=== PATIENT | male | born 1965 | race Caucasian/White ===

== ENCOUNTER 2021-02-08 10:06 | Emergency (ER) | payer OTHER, SELFPAY ==
[2021-02-08] VITALS (11 sets, daily range): BP systolic 114–193; BP diastolic 60–93; PULSE 66–92; RESP 25–36; TEMP 37–39.6; O2SAT 94–98; BMI 44.2
--- NOTE | ~2021-02-08 | XR_ITS ---
EXAMINATION: XR CHEST CLINICAL INFORMATION: Short of breath, fever. Rule out pneumonia. COMPARISON: None TECHNIQUE: Frontal view of the chest was obtained. FINDINGS: The lungs are hypoexpanded with bibasilar atelectasis. Rest of the lungs are clear.. Heart size and pulmonary vascularity is normal. No gross bony abnormality seen. XR/XR chest 1V IMPRESSION: Hypoexpanded lungs with bibasilar atelectasis.
--- NOTE | 2021-02-08 10:24 | PC.NURSE ---
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 Ice packs placed bilaterally in groin, axillae area and back of neck to cool patient down
--- NOTE | 2021-02-08 10:40 | ECG_ITS ---
Test Reason : HEAT STROKE Blood Pressure : / mmHG Vent. Rate : 094 BPM Atrial Rate : 094 BPM P-R Int : 134 ms QRS Dur : 136 ms QT Int : 352 ms P-R-T Axes : 006 -34 007 degrees QTc Int : 440 ms Normal sinus rhythm Left axis deviation Right bundle branch block Moderate voltage criteria for LVH, may be normal variant Abnormal ECG No previous ECGs available Referred By: Eleazar Allen Electronically Signed By:QUOC GAMBOA MD
--- NOTE | 2021-02-08 10:42 | ED.GENADULT ---
HPI - General Adult General Chief complaint: Nausea/Vomiting/Diarrhea Stated complaint: DEHYDRATION Time Seen by Provider: 02/08/21 10:31 Source: patient Mode of arrival: ambulatory Limitations: no limitations History of Present Illness HPI narrative: 55-year-old male who was brought to the emergency department for evaluation of lightheadedness, dizziness, vomiting diarrhea and weakness. 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 He was not feeling well and he went into the bathroom. In the bathroom he became lightheaded and dizzy and felt like he was going to pass out. He then had several episodes of vomiting and several episodes of diarrhea. He felt very fatigued and weak and was brought to the emergency department. In the emergency department, patient was found to have a temperature of a 103? F. The patient is complaining of feeling short of breath. He states he does have asthma. He also states that he has sleep apnea and fell asleep last night without his CPAP machine. Related Data Allergies Allergy/AdvReac Type Severity Reaction Status Date / Time No Known Allergies Allergy Verified 02/08/21 10:38 Review of Systems Review of Systems: Yes all other systems are reviewed and are negative [facility] Past Medical History [facility] Narrative: Past medical history: Diabetes mellitus, hyperlipidemia, sleep apnea, asthma. Past surgical history: Left thumb surgery. Social history: Patient denies tobacco, alcohol and drug use. Social History Social History Alcohol intake: never Patient Tobacco Use Status: Current someday Tobacco user Use of substances other than those prescribed or required for medical reasons: No Advance Directives: No Advance Directives Information Provided: Yes Physical Exam Vital Signs: Vital Signs: Last Vital Signs Temp 98.8 F 02/08/21 15:56 Pulse 83 02/08/21 15:56 Resp 28 H 02/08/21 15:56 BP 125/67 02/08/21 15:56 Pulse Ox 94 02/08/21 15:56 Body Mass Index 44.2 Const: General: cooperative Nutritional Appearance: obese Orientation/consciousness: oriented to person and oriented to place Limitations: no limitations HENMT: Head: Yes normal to inspection, Yes normocephalic and Yes atraumatic Ears: external ears normal General nose exam: Normal external nose present Face and sinus: Yes normal facial exam Mouth: Normal oral and palatal mucosa present Throat: Yes posterior oropharynx normal Eyes: Periorbital: periorbital findings normal Eyelids: Yes eyelids normal Conjunctivae: conjunctivae normal Sclerae: sclerae normal Corneas: corneas normal Pupils: Equal, round and reactive pupils present Direct Ophthalmoscopy: normal light reflex Neck: Neck: Yes full ROM, Yes no lymphadenopathy, Yes no meningeal signs, Yes trachea midline and Yes supple Chest: Chest palpation & inspection: normal inspection of the chest and normal palpation of entire chest wall Resp: Other: Patient appears to be dyspnea, lung exam revealed symmetric breath sounds with diffuse wheezing, no rales or rhonchi. Cardio: Rate: regular rate Rhythm: regular rhythm Heart sounds: S1 normal heart sound present, S2 normal heart sound present and no murmurs GI: Inspection: Yes normal to inspection Palpation (GI): Soft to palpation, nontender, no guarding, not rigid and No hepatosplenomegaly present : General: Yes no CVA tenderness Back/Spine/Pelvis: Back: no CVA tenderness Cervical Spine: normal cervical lordosis Thoracic/Lumbar Spine: thoracic and lumbar spine normal to inspection Skin: Other: The patient's skin is erythematous and very warm to the touch Neuro: General: oriented to person, oriented to place and no meningeal signs Cranial nerves: Yes CN's II-XII intact bilaterally and Yes Equal, round and reactive pupils present Cognition (Neuro): normal cognition Motor exam (neuro): 5/5 motor strength present throughout Extrem: General: Yes normal to inspection and Yes full ROM Psych: Appearance: well kempt Mental Status: mental status grossly normal Speech and movement: Normal speech and movement present Affect: normal affect Attitude: cooperative Thought process: Normal thought process present Thought content: Normal thought content present Course Course Course Narrative: 55-year-old male who presents emergency department for evaluation of dizziness, vomiting, diarrhea, fatigue and shortness of breath. 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 F. lung exam did reveal diffuse wheezing. My impression is the patient most likely has heat stroke. I did order laboratory evaluation to include CBC, CMP, troponin, EKG, blood cultures, lactic acid, chest x-ray. Patient was given Tylenol 975 mg orally, ice was packed in his axilla and groin bilaterally. he was ordered to get room temperature normal saline IV x1 L. 1631: Patient's laboratory evaluation did reveal an elevated white blood cell count of 15,000 with a left shift 90 neutrophils. Comprehensive metabolic panel did reveal an elevated glucose of 135 and elevated AST of 48 otherwise was unremarkable. Patient's initial lactic acid was 2.3, repeat was 2.5 and after completing his fluid boluses the lactic acid was 2.0. The patient's chest x-ray revealed no evidence of pneumonia. Urinalysis was negative. The patient is COVID-19 test was negative.The patient denies any tick exposures . The patient did have persistent fevers there were treated with Tylenol, ibuprofen and ice packs. It is possible the patient's symptoms may all be related to heat stroke however the patient may also have a viral infection as a cause of his symptoms. I did discuss this with him. The patient will be discharged home. The patient was given verbal and printed instructions prior to discharge. The patient was advised to follow-up with their PCP in 2 days and to return to the emergency department if their symptoms get worse or if they develop any new symptoms that are concerning to them Medical Decision Making Lab Data Result diagrams: 02/08/21 10:45 02/08/21 10:45 Labs: Lab Results 02/08/21 02/08/21 02/08/21 Range/Units 10:45 10:45 10:45 WBC 15.0 H (4.8-10.8) X10*3/uL RBC 4.58 L (4.60-5.80) X10*6/uL Hgb 13.9 L (14.0-18.0) g/dl Hct 42.3 (42-52) % MCV 92.4 (80-98) fL MCH 30.3 (27.0-33.0) pg MCHC 32.9 (31.0-36.0) g/dl RDW 13.5 (11.0-16.0) % Plt Count 166 (160-400) X10*3/uL MPV 12.4 (9.4-12.4) fL Immature Gran % (Auto) 0.5 H (0.0-0.4) % Neut % (Auto) 90.5 H (45-73) % Lymph % (Auto) 3.6 L (20-40) % Bacon % (Auto) 4.5 (2-11) % Eos % (Auto) 0.5 (0-4) % Baso % (Auto) 0.4 (0-2) % Lymph # (Auto) 0.5 L (1.2-4.9) X10*3/uL [place] # (Auto) 0.7 (0.1-1.2) X10*3/uL Eos # (Auto) 0.1 (0.0-0.4) X10*3/uL Baso # (Auto) 0.1 (0.0-0.2) X10*3/uL Abs Immat Gran (auto) 0.07 H (0.00-0.03) X10*3/uL Absolute Neuts (auto) 13.6 H (2.0-8.3) X10*3/uL Absolute Nucleated RBC 0.000 (0.0-0.012) X10*3/uL Nucleated RBC % (auto) 0.0 (0.0-0.2) /100WBC Smear Tech's Comments VERIFIED Sodium 138 (135-145) mmol/L Potassium 3.9 (3.3-5.1) mmol/L Chloride 101 (96-108) mmol/L Carbon Dioxide 27 (22-29) mmol/L Anion Gap 14 (12-20) BUN 14 (9-16) mg/dL Creatinine 0.96 (0.5-1.4) mg/dL Estim Creat Clear Calc 130.6 Estimated GFR > 60 Random Glucose 135 H (60-115) mg/dL Lactic Acid 2.3 H* (0.5-2.0) mmol/L Lactic Acid Fup @ 2Hr (0.5-2.0) mmol/L Lactic Acid Fup @ 4Hr (0.5-2.0) mmol/L Calcium 9.0 (8.4-10.2) mg/dL Total Bilirubin 1.0 (0.0-1.0) mg/dL AST 26 (5-37) U/L ALT 48 H (0-40) U/L Alkaline Phosphatase 87 (39-117) U/L Troponin I High Sens (<3.5-35.0) ng/L Total Protein 7.1 (6.5-8.0) g/dL Albumin 4.4 (3.5-5.0) g/dL Urine Color Urine Appearance Urine pH (5.0-8.0) Ur Specific [place] (1.005-1.025) Urine Protein (NEG-TRACE) MG/DL Urine Glucose (UA) (NEG) MG/DL Urine Ketones (NEG) MG/DL Urine Blood (NEG) Urine Nitrite (NEG) Ur Leukocyte Esterase (NEG) COVID-19 (EFREM) (Negative) COVID-19 Clin Com 02/08/21 02/08/21 02/08/21 Range/Units 10:45 13:34 13:34 WBC (4.8-10.8) X10*3/uL RBC (4.60-5.80) X10*6/uL Hgb (14.0-18.0) g/dl Hct (42-52) % MCV (80-98) fL MCH (27.0-33.0) pg MCHC (31.0-36.0) g/dl RDW (11.0-16.0) % Plt Count (160-400) X10*3/uL MPV (9.4-12.4) fL Immature Gran % (Auto) (0.0-0.4) % Neut % (Auto) (45-73) % Lymph % (Auto) (20-40) % Bacon % (Auto) (2-11) % Eos % (Auto) (0-4) % Baso % (Auto) (0-2) % Lymph # (Auto) (1.2-4.9) X10*3/uL [place] # (Auto) (0.1-1.2) X10*3/uL Eos # (Auto) (0.0-0.4) X10*3/uL Baso # (Auto) (0.0-0.2) X10*3/uL Abs Immat Gran (auto) (0.00-0.03) X10*3/uL Absolute Neuts (auto) (2.0-8.3) X10*3/uL Absolute Nucleated RBC (0.0-0.012) X10*3/uL Nucleated RBC % (auto) (0.0-0.2) /100WBC Smear Tech's Comments Sodium (135-145) mmol/L Potassium (3.3-5.1) mmol/L Chloride (96-108) mmol/L Carbon Dioxide (22-29) mmol/L Anion Gap (12-20) BUN (9-16) mg/dL Creatinine (0.5-1.4) mg/dL Estim Creat Clear Calc Estimated GFR Random Glucose (60-115) mg/dL Lactic Acid (0.5-2.0) mmol/L Lactic Acid Fup @ 2Hr 2.5 H* (0.5-2.0) mmol/L Lactic Acid Fup @ 4Hr (0.5-2.0) mmol/L Calcium (8.4-10.2) mg/dL Total Bilirubin (0.0-1.0) mg/dL AST (5-37) U/L ALT (0-40) U/L Alkaline Phosphatase (39-117) U/L Troponin I High Sens 14.1 (<3.5-35.0) ng/L Total Protein (6.5-8.0) g/dL Albumin (3.5-5.0) g/dL Urine Color Urine Appearance Urine pH (5.0-8.0) Ur Specific [place] (1.005-1.025) Urine Protein (NEG-TRACE) MG/DL Urine Glucose (UA) (NEG) MG/DL Urine Ketones (NEG) MG/DL Urine Blood (NEG) Urine Nitrite (NEG) Ur Leukocyte Esterase (NEG) COVID-19 (EFREM) Negative (Negative) COVID-19 Clin Com See Note 02/08/21 02/08/21 Range/Units 14:46 15:55 WBC (4.8-10.8) X10*3/uL RBC (4.60-5.80) X10*6/uL Hgb (14.0-18.0) g/dl Hct (42-52) % MCV (80-98) fL MCH (27.0-33.0) pg MCHC (31.0-36.0) g/dl RDW (11.0-16.0) % Plt Count (160-400) X10*3/uL MPV (9.4-12.4) fL Immature Gran % (Auto) (0.0-0.4) % Neut % (Auto) (45-73) % Lymph % (Auto) (20-40) % Bacon % (Auto) (2-11) % Eos % (Auto) (0-4) % Baso % (Auto) (0-2) % Lymph # (Auto) (1.2-4.9) X10*3/uL [place] # (Auto) (0.1-1.2) X10*3/uL Eos # (Auto) (0.0-0.4) X10*3/uL Baso # (Auto) (0.0-0.2) X10*3/uL Abs Immat Gran (auto) (0.00-0.03) X10*3/uL Absolute Neuts (auto) (2.0-8.3) X10*3/uL Absolute Nucleated RBC (0.0-0.012) X10*3/uL Nucleated RBC % (auto) (0.0-0.2) /100WBC Smear Tech's Comments Sodium (135-145) mmol/L Potassium (3.3-5.1) mmol/L Chloride (96-108) mmol/L Carbon Dioxide (22-29) mmol/L Anion Gap (12-20) BUN (9-16) mg/dL Creatinine (0.5-1.4) mg/dL Estim Creat Clear Calc Estimated GFR Random Glucose (60-115) mg/dL Lactic Acid (0.5-2.0) mmol/L Lactic Acid Fup @ 2Hr (0.5-2.0) mmol/L Lactic Acid Fup @ 4Hr 2.0 (0.5-2.0) mmol/L Calcium (8.4-10.2) mg/dL Total Bilirubin (0.0-1.0) mg/dL AST (5-37) U/L ALT (0-40) U/L Alkaline Phosphatase (39-117) U/L Troponin I High Sens (<3.5-35.0) ng/L Total Protein (6.5-8.0) g/dL Albumin (3.5-5.0) g/dL Urine Color YELLOW Urine Appearance CLEAR Urine pH 6.0 (5.0-8.0) Ur Specific [place] 1.020 (1.005-1.025) Urine Protein NEG (NEG-TRACE) MG/DL Urine Glucose (UA) NEG (NEG) MG/DL Urine Ketones NEG (NEG) MG/DL Urine Blood NEG (NEG) Urine Nitrite NEG (NEG) Ur Leukocyte Esterase NEG (NEG) COVID-19 (EFREM) (Negative) COVID-19 Clin Com Discharge Plan Discharge Clinical Impression: Heat stroke, Fever, Viral syndrome Patient Disposition: Home, Self-Care Instructions: Heatstroke (ED), Viral Syndrome (ED) Additional Instructions: Your laboratory evaluation did reveal an elevated white blood cell count otherwise was unremarkable. Urinalysis revealed no evidence of an infection. Your chest x-ray revealed no pneumonia Your COVID-19 test was negative. At this time, it is unclear to me what caused Your symptoms but she may have a viral infection versus heat stroke. Take ibuprofen 200 mg pills, 3 pills every 6 hours as needed for pain for fever. Take Tylenol (acetaminophen) 500 mg pills, 2 pills every 4 to 6 hours as needed for pain or fever. No work for 3 days, stay home, rest, increase your fluid intake. Follow-up with your doctor in 2 days. Please return to the emergency department if your symptoms get worse or if you develop any symptoms that are concerning to you. Stand Alone Forms: Work/School Release
[2021-02-08] MEDS: Albuterol Sulfate (0.083%) 2.5 MG/3 ML VIAL.NEB INHALE (10:53)
[2021-02-08] MEDS: 0.9 % Sodium Chloride 1,000 ML 999 ML IV (11:02)
[2021-02-08] MEDS: Acetaminophen 325 MG TABLET 975 MG PO (11:06)
[2021-02-08 11:09] LABS: Basophils Absolute Auto 0.1 X10*3/uL (0.0-0.2); Basophils Percent Auto 0.4 % (0-2); Eosinophils Absolute Auto 0.1 X10*3/uL (0.0-0.4); Eosinophils Percent Auto 0.5 % (0-4); Hematocrit 42.3 % (42-52); Hemoglobin 13.9 g/dl (14.0-18.0); Imm Gran Abs Auto 0.07 X10*3/uL (0.00-0.03); Imm Gran Pct Auto 0.5 % (0.0-0.4); Lymphocytes Absolute Auto 0.5 X10*3/uL (1.2-4.9); Lymphocytes Percent Auto 3.6 % (20-40); MANUAL DIFF FLAG SCAN; Mean Corpuscular HGB Conc 32.9 g/dl (31.0-36.0); Mean Corpuscular Hemoglobin 30.3 pg (27.0-33.0); Mean Corpuscular Volume 92.4 fL (80-98); Mean Platelet Volume 12.4 fL (9.4-12.4); Monocytes Absolute Auto 0.7 X10*3/uL (0.1-1.2); Monocytes Percent Auto 4.5 % (2-11); Neutrophils Absolute Auto 13.6 X10*3/uL (2.0-8.3); Neutrophils Percent Auto 90.5 % (45-73); Platelet Count 166 X10*3/uL (160-400); Red Blood Count 4.58 X10*6/uL (4.60-5.80); Red Cell Distribution Width 13.5 % (11.0-16.0); SCAN SMEAR FLAG 1
[2021-02-08 11:23] LABS: Lactic Acid 2.3 mmol/L (0.5-2.0)
[2021-02-08 11:31] LABS: Alanine Aminotransferase 48 U/L (0-40); Albumin Level 4.4 g/dL (3.5-5.0); Alkaline Phosphatase 87 U/L (39-117); Anion Gap 14 (12-20); Aspartate Amino Transferase 26 U/L (5-37); Blood Urea Nitrogen 14 mg/dL (9-16); Carbon Dioxide 27 mmol/L (22-29); Chloride 101 mmol/L (96-108); Creatinine Clr Calc Pharmacy 130.6; Estimated Glomerular Filt Rate > 60; Glucose Random 135 mg/dL (60-115); Potassium 3.9 mmol/L (3.3-5.1); Sodium 138 mmol/L (135-145); Total Protein 7.1 g/dL (6.5-8.0)
[2021-02-08 11:37] LABS: Troponin-I High Sensitivity 14.1 ng/L (<3.5-35.0)
[2021-02-08 12:17] LABS: SLIDE REVIEW VERIFIED
--- NOTE | 2021-02-08 12:28 | PC.NURSE ---
Ice packs changed out. Pt is alert and oriented. Respirations continue to be rapid and occasional wheezing noted.
[2021-02-08 13:03] LABS: Reflex Lactate? Lactic Acid Added
[2021-02-08] MEDS: Ibuprofen 600 MG TABLET PO (13:26)
[2021-02-08] MEDS: 0.9 % Sodium Chloride 2,397 ML 2397 ML IVCONT (13:26)
[2021-02-08] MEDS: cefTRIAXone sodium 1 GM in 0.9 % Sodium Chloride 50 ML IV (13:26)
[2021-02-08 13:55] LABS: COVID-19 Test Negative (Negative); IDNOW Serial# 9DD0AD1C
[2021-02-08 14:17] LABS: ~Lactic Acid-LAB USE ONLY 2.5 mmol/L (0.5-2.0)
[2021-02-08 15:05] LABS: Glucose Urine UA NEG (NEG); Leukocyte Esterase Urine NEG (NEG); Nitrite Urine NEG (NEG); Urine Blood NEG (NEG); Urine Ketones NEG (NEG); Urine Protein NEG (NEG-TRACE)
[2021-02-08 15:10] LABS: Appearance Urine CLEAR; Color Urine YELLOW
[2021-02-08 15:38] LABS: Reflex Lactate? 2 Y
--- NOTE | 2021-02-08 21:11 | PC.NURSE ---
GRAM POSITIVE COCCI & CHAINS ON BOTH BLOOD CULTURE SETS. NOTIFIED. THIS RN NOTIFIED OF CRITICAL RESULT BY LAB.
== END 2021-02-08 16:58 | disposition home or self-care (01) ==
PROVIDERS: Emergency Provider Emergency Medicine Emergency Medical Services
DX: T67.01XA Heatstroke and sunstroke, initial encounter (principal); B34.9 Viral infection, unspecified; R78.81 Bacteremia; E11.9 Type 2 diabetes mellitus without complications; J45.909 Unspecified asthma, uncomplicated; X30.XXXA Exposure to excessive natural heat, initial encounter; Y93.89 Activity, other specified; Y92.89 Other specified places as the place of occurrence of the external cause; Y99.9 Unspecified external cause status; Z20.822 Contact with and (suspected) exposure to COVID-19
CPT/HCPCS: 36415; 71045; 80053; 81003; 83605; 84484; 85025; 87040; 87147; 87186; 87205; 87635; 93005; 94640; 96361; 96365; 99285; J0696

== ENCOUNTER 2021-02-08 22:57 | Inpatient (IN) | payer BC, SELFPAY ==
--- NOTE | ~2021-02-08 | XR_ITS ---
EXAMINATION: XR CHEST, 2 VIEWS CLINICAL INFORMATION: Cough COMPARISON: 02/08/2021 TECHNIQUE: PA and lateral views of the chest were obtained. FINDINGS: Mild elevation of the right hemidiaphragm. There is minimal associated right basilar atelectasis. No consolidation, pneumothorax, or pleural effusion. Bronchial wall thickening. Cardiac and mediastinal contours are normal. Pulmonary vasculature is unremarkable. Trachea is midline. Degenerative disc disease in the thoracic spine. XR/XR chest 2V IMPRESSION: Mild bronchial wall thickening as can be seen with a small airways process such as asthma or atypical/viral infection. No focal consolidation.
--- NOTE | ~2021-02-08 | CT_ITS ---
EXAMINATION: CT ABDOMEN AND PELVIS WITH CONTRAST CLINICAL INFORMATION: fevers, diarrhea, abdominal discomfort, leukocytosis COMPARISON: None TECHNIQUE: Multidetector volumetric images were obtained from the superior aspect of the liver through the pubic symphysis following administration 85 mL of Omnipaque 350 intravenous contrast. Sagittal and coronal reformatted images were obtained on the technologist's workstation. Oral contrast: No This CT examination was performed using dose optimization techniques as appropriate, variously including the following: *Automated exposure control *Adjustment of mA and/or kV according to patient size (this includes techniques or standardized protocols for targeted exams where dose is matched to indication/reason for exam; i.e. extremities or head) *Use of iterative reconstruction technique DLP: 1602 mGy-cm FINDINGS: LUNG BASES: The visualized lung bases are unremarkable. LIVER, GALLBLADDER, AND BILIARY TREE: Relative hypoattenuation of the hepatic parenchyma is consistent with steatosis. Liver is normal in size and contour. No focal lesions are identified. No biliary dilatation. Gallbladder is surgically absent. PANCREAS: Unremarkable. SPLEEN: Unremarkable. ADRENAL GLANDS: Unremarkable. KIDNEYS AND URETERS: The kidneys are normal in size, shape, and attenuation. There is subtle left hydronephrosis, likely due to a strain of punctate calcifications within the left ureter measuring up to 2 mm in diameter. There is mild surrounding periureteral fat stranding distally. Of note, these calcifications appear eccentrically located at the ureter which is atypical. No right-sided renal calculi. A 9 mm focus of hypoattenuation in the left kidney too small to characterize, statistically favored to correspond to a simple cyst. No follow-up imaging is recommended. BLADDER: Unremarkable. GASTROINTESTINAL TRACT: Stomach, small bowel, and colon are normal in caliber. No bowel wall thickening or surrounding inflammatory changes. A few colonic diverticula are identified without evidence of acute diverticulitis Appendix is normal. No intraperitoneal free fluid or free air. ABDOMINAL WALL: No significant hernia is appreciated. There is fat stranding in the left retroperitoneal soft tissues which is in the region of the left ureter, it also extends along the left common iliac iliac vasculature into the left inguinal region and proximal thigh. LYMPH NODES: No pathologic adenopathy. VASCULAR: No aneurysmal dilatation. Portal venous system is patent. PELVIC VISCERA: The prostate and seminal vesicles are unremarkable. OSSEOUS STRUCTURES: Severe degenerative disc disease is present in the lumbar spine. There are prominent posterior disc osteophyte complexes at L3-L4 and L4-L5 which likely contribute to moderate to severe central canal stenoses at these levels, more notably at L3-L4. More moderate degenerative disc disease is present in the remainder of the thoracic and lumbar spine. No acute fractures are identified. Moderate osteoarthritis pubis. Mild osteoarthritis in the hips. CT/CT abdomen pelvis w con IMPRESSION: 1. Mild left hydronephrosis with multiple probable left mid ureteral calculi. Of note, these calcifications are eccentrically situated at the ureter which is atypical, possibly located within the urothelium. 2. Fat stranding in the left inguinal region anteriorly extending proximally along the left iliac chain. This is of uncertain etiology, potentially due to inflammation more distally within the thigh. Recommend correlation for findings of cellulitis or other infection in the left anterior thigh. 3. Hepatic steatosis. 4. Mild colonic diverticulosis without evidence of acute diverticulitis. 5. Marked degenerative spondylosis in the lumbar spine with high-grade stenoses at L3-L4 and L4-5.
--- NOTE | ~2021-02-08 | US_ITS ---
EXAMINATION: US VENOUS ULTRASOUND WITH DOPPLER LOWER EXTREMITY, LEFT CLINICAL INFORMATION: Pain and swelling COMPARISON: None TECHNIQUE: Ultrasound of the deep veins is performed from the hip to the calf with compression sonography and color and pulse Doppler assessment. Spectral analysis with color-flow imaging is performed. FINDINGS: There is normal venous compression and respiratory variation and augmented flow. The visualized common femoral vein, superficial femoral vein, profunda femoral vein, popliteal vein, and the trifurcation region shows no evidence of deep venous thrombosis. There is no significant popliteal fossa cyst. Subcutaneous edema below the knee. Nonspecific 3.1 cm long axis lymph node in the left groin. If the patient's symptoms persist, followup ultrasound in 5 days 7 days might be of value to exclude proximal propagation from a non-visualized calf vein. US/US venous duplex LE IMPRESSION: No DVT demonstrated in the left lower extremity.
[2021-02-08 23:10] VITALS: BP 144/65; PULSE 76; RESP 22; TEMP 38; O2SAT 95; BMI 42.2
[2021-02-09] VITALS (10 sets, daily range): BP systolic 114–152; BP diastolic 55–80; PULSE 70–94; RESP 16–20; TEMP 36.4–37.6; O2SAT 95–99; BMI 43.3
--- NOTE | 2021-02-09 00:11 | ED.RECABL ---
HPI - Recheck/Abnormal Lab/Rx General Chief Complaint: Recheck/Abnormal Lab/Rx Stated Complaint: lab check? Time Seen by Provider: 02/08/21 23:59 Source: patient Mode of arrival: ambulatory History of Present Illness HPI narrative: 55-year-old male with history of diabetes, MELY, and asthma and was called back into this emergency room for findings of 2 sets of blood cultures being positive for gram-positive cocci. Patient had been seen earlier in the day here in the emergency department for complaints of lightheadedness, dizziness, vomiting, diarrhea, and weakness and found to have a temperature of 103?. At this time patient denies any shortness of breath, chest pain / palpitations, abdominal pain /nausea/vomiting. Related Data Allergies Allergy/AdvReac Type Severity Reaction Status Date / Time No Known Allergies Allergy Verified 02/08/21 10:38 Review of Systems Review of Systems: Pertinent positives and negatives as stated in HPI 10 point review of systems is otherwise negative. PMFSH Past Medical History Source: nursing notes reviewed Surgical History H/O hand surgery Social History Social History Alcohol intake: never Patient Tobacco Use Status: Former Tobacco user Smoked in Last 30 Days: No Use of substances other than those prescribed or required for medical reasons: No Advance Directives: No Physical Exam Vital Signs: Vital Signs: Last Vital Signs Temp 98.8 F 02/09/21 01:39 Pulse 78 02/09/21 02:00 Resp 18 02/09/21 02:00 BP 114/55 L 02/09/21 01:39 Pulse Ox 97 02/09/21 02:00 Body Mass Index 42.2 VITAL SIGNS: Reviewed. GENERAL: Morbidly obese,Well developed, well nourished, in no acute distress. HEAD: Normocephalic/atraumatic EYES: PERRLA, EOMI OROPHARYNX: no oral lesions noted, posterior pharynx clear NECK: Supple, no adenopathy LUNGS: Normal breath sounds. No adventitious sounds or accessory muscle use. SpO2<99> CARDIOVASCULAR: Regular rate and rhythm without noted murmurs ABDOMEN: Obese, Soft, non-tender, non-distended with bowel sounds. Abdominal exam limited by body habitus MUSCULOSKELETAL: No tenderness, deformities, or effusions noted on gross inspection. EXTREMITIES: No cyanosis, clubbing, but swelling/erythema / tactile warmth noted at the left lower extremity, bilateral feet cool without erythema/ swelling/ ulcerations /injury SKIN: Inspection of the skin reveals no rashes NEUROLOGIC: Alert and oriented x 4. Strength and sensation to light touch were grossly intact x 4. Course Course Course Narrative: 55-year-old male with history and clinical presentation consistent with bacteremia without an identified source although the left lower extremity is suggestive with clinical findings consistent with cellulitis without noted ulcerations and low clinical suspicion for DVT. However, the left lower extremity cellulitis would be unlikely to have contributed to patient's spectrum of symptoms on presentation yesterday. On review of all investigations there is a continued rise noted in the leukocytes prompting administration of empiric antibiotics / obtaining an additional lactic acid / two-view chest x-ray/ scan of abdomen - pelvis. Patient remains otherwise hemodynamically stable. On review of additional imaging there is no noted infiltrate on chest x-ray, but CT abdomen and pelvis has identified ureterolithiasis with some mild left hydronephrosis as well as stranding and in addition has identified stranding in the left inguinal region extending proximally along the left iliac chain and raised question as to the possibility of inflammation within the thigh. I then exam and the left thigh which is noted to be erythematous/ tactile warmth without noted induration to the medial left thigh and on further evaluation there is no involvement of the perineal or scrotal area. However, there is noted involvement at the left thigh crease. Patient has received both Zosyn and vancomycin. This case was discussed with the inpatient hospitalist who is agreeable for admission. MDM - Recheck/Abnormal Lab/Rx Lab Data Result diagrams: 02/09/21 00:52 02/09/21 00:52 Labs: Lab Results 02/09/21 02/09/21 02/09/21 Range/Units 00:52 00:52 01:53 WBC 21.7 H (4.8-10.8) X10*3/uL RBC 4.18 L (4.60-5.80) X10*6/uL Hgb 12.9 L (14.0-18.0) g/dl Hct 38.5 L (42-52) % MCV 92.1 (80-98) fL MCH 30.9 (27.0-33.0) pg MCHC 33.5 (31.0-36.0) g/dl RDW 13.6 (11.0-16.0) % Plt Count 158 L (160-400) X10*3/uL MPV 12.1 (9.4-12.4) fL Immature Gran % (Auto) 1.2 H (0.0-0.4) % Neut % (Auto) 93.3 H (45-73) % Lymph % (Auto) 2.3 L (20-40) % [place] % (Auto) 3.1 (2-11) % Eos % (Auto) 0.0 (0-4) % Baso % (Auto) 0.1 (0-2) % Lymph # (Auto) 0.5 L (1.2-4.9) X10*3/uL [place] # (Auto) 0.7 (0.1-1.2) X10*3/uL Eos # (Auto) 0.0 (0.0-0.4) X10*3/uL Baso # (Auto) 0.0 (0.0-0.2) X10*3/uL Abs Immat Gran (auto) 0.26 H (0.00-0.03) X10*3/uL Absolute Neuts (auto) 20.2 H (2.0-8.3) X10*3/uL Absolute Nucleated RBC 0.000 (0.0-0.012) X10*3/uL Nucleated RBC % (auto) 0.0 (0.0-0.2) /100WBC Smear Tech's Comments VERIFIED Sodium 139 (135-145) mmol/L Potassium 4.9 D (3.3-5.1) mmol/L Chloride 104 (96-108) mmol/L Carbon Dioxide 25 (22-29) mmol/L Anion Gap 15 (12-20) BUN 18 H (9-16) mg/dL Creatinine 1.07 (0.5-1.4) mg/dL Estim Creat Clear Calc 114.2 Estimated GFR > 60 Random Glucose 161 H (60-115) mg/dL Lactic Acid 2.0 (0.5-2.0) mmol/L Calcium 8.7 (8.4-10.2) mg/dL Total Bilirubin 0.7 (0.0-1.0) mg/dL AST 20 (5-37) U/L ALT 40 (0-40) U/L Alkaline Phosphatase 62 D (39-117) U/L Total Creatine Kinase 255 H (38-174) U/L C-Reactive Protein 17.00 H (< or = 0.50) mg/dL Total Protein 6.3 L (6.5-8.0) g/dL Albumin 3.9 (3.5-5.0) g/dL Discharge Plan Discharge Clinical Impression: Cellulitis of left lower extremity Patient Disposition: Admitted As Inpatient
[2021-02-09 00:58] LABS: Basophils Percent Auto 0.1 % (0-2); Hematocrit 38.5 % (42-52); Hemoglobin 12.9 g/dl (14.0-18.0); Imm Gran Abs Auto 0.26 X10*3/uL (0.00-0.03); Imm Gran Pct Auto 1.2 % (0.0-0.4); Lymphocytes Absolute Auto 0.5 X10*3/uL (1.2-4.9); Lymphocytes Percent Auto 2.3 % (20-40); MANUAL DIFF FLAG SCAN; Mean Corpuscular HGB Conc 33.5 g/dl (31.0-36.0); Mean Corpuscular Hemoglobin 30.9 pg (27.0-33.0); Mean Corpuscular Volume 92.1 fL (80-98); Mean Platelet Volume 12.1 fL (9.4-12.4); Monocytes Absolute Auto 0.7 X10*3/uL (0.1-1.2); Monocytes Percent Auto 3.1 % (2-11); Neutrophils Absolute Auto 20.2 X10*3/uL (2.0-8.3); Neutrophils Percent Auto 93.3 % (45-73); Platelet Count 158 X10*3/uL (160-400); Red Blood Count 4.18 X10*6/uL (4.60-5.80); Red Cell Distribution Width 13.6 % (11.0-16.0); SCAN SMEAR FLAG 1; White Blood Count 21.7 X10*3/uL (4.8-10.8)
[2021-02-09 01:30] LABS: Alanine Aminotransferase 40 U/L (0-40); Albumin Level 3.9 g/dL (3.5-5.0); Alkaline Phosphatase 62 U/L (39-117); Anion Gap 15 (12-20); Aspartate Amino Transferase 20 U/L (5-37); Bilirubin Total 0.7 mg/dL (0.0-1.0); Blood Urea Nitrogen 18 mg/dL (9-16); Calcium 8.7 mg/dL (8.4-10.2); Carbon Dioxide 25 mmol/L (22-29); Chloride 104 mmol/L (96-108); Creatinine Clr Calc Pharmacy 114.2; Estimated Glomerular Filt Rate > 60; Glucose Random 161 mg/dL (60-115); Potassium 4.9 mmol/L (3.3-5.1); Sodium 139 mmol/L (135-145); Total Protein 6.3 g/dL (6.5-8.0)
[2021-02-09 01:31] LABS: SLIDE REVIEW VERIFIED
--- NOTE | 2021-02-09 01:56 | PC.NURSE ---
pt taken to ct with contrast.
[2021-02-09] MEDS: iohexoL 350 MG/ML 100 ML INFUS..BTL 85 ML IV (02:20)
[2021-02-09] MEDS: Piperacillin Sodium/Tazobactam 3.375 GM in 0.9 % Sodium Chloride 50 ML IV (02:22)
--- NOTE | 2021-02-09 02:26 | PC.NURSE ---
pt returned from ct with contrast.
[2021-02-09] MEDS: vancomycin HCL 1,000 MG in 0.9 % Sodium Chloride 250 ML 270 MG IV ×2 (03:13→13:21)
--- NOTE | 2021-02-09 03:21 | PC.NURSE ---
pt left upper inner thigh redness noted and seen by provider. along with lower leg.
[2021-02-09 03:27] LABS: Appearance Urine CLEAR; Color Urine YELLOW; Glucose Urine UA 100 MG/DL (NEG); Leukocyte Esterase Urine NEG (NEG); Nitrite Urine NEG (NEG); Urine Blood NEG (NEG); Urine Ketones 5 MG/DL (NEG); Urine Protein 1+ MG/DL (NEG-TRACE)
[2021-02-09 03:29] LABS: COVID-19 Test Negative (Negative)
[2021-02-09 03:48] LABS: Amorphous Sediment Urine TRACE /LPF; Hyaline Casts Urine 0-2 /LPF; Mucus Urine TRACE /LPF; RBC Urine 0-2 /HPF (0); Squamous Epithelial Cell Urine 1+ /LPF
[2021-02-09 03:49] LABS: Erythrocyte Sedimentation Rate 23 MM/HR (0-15)
--- NOTE | 2021-02-09 05:18 | P.HPHOSP_ITS ---
History of Present Illness Date of Service: 02/09/21 Chief Complaint: Positive cultures this is a 55-year-old male with past medical history of diabetes, MELY and asthma who presents to the hospital after being called back to the ED for positive cultures. Patient had been seen earlier in the ED for complaints of lightheadedness, dizziness, vomiting, diarrhea and weakness and found to have temperature of 103? at that time patient was diagnosed with heat stroke treated with IV fluids, patient's vitals at that time were stable except for temperature of 103?, he was also found to [place] an [place] [id number] with a left shift, as well as lactic acid of 2.3. Patient received IV fluids in the ED and with improvement in his symptoms as well as his fever and lactic acid and was sent home. He has cultures drawn at the time and they returned 2/2 bottles positive with Gram- positive cocci in in chains. He returns now noted to have left lower extremity swelling redness but reports says he has had that for a while. He also has left groin area redness when asked about that he also says that he thought he was a yeast infection and has been placing nystatin on it with no resolution. He denies any fever or chills, no abdominal pain nausea vomiting, no diarrhea, no chest pain. patient has no shortness of breath. Denies any urinary symptoms. On this presentation vitals were significant for temp of a 100.4?, respiratory rate of 22, blood pressure of 144/65, heart rate of 76, satting 95% on room air labs are not significant for WBC count of 21.7 from 15 earlier in the day, BUN of 18, creatinine of 1.07 that increased from 0.96, lactic acid of 2.0, UA negative, COVID negative culture showing Gram-positive cocci in chains. Past medical history is blown confirm with patient Review of Systems Review of Systems: Yes all other systems are reviewed and are negative [facility] Medical History (Updated 02/09/21 @ 05:33 by Saulo Miner MD) Asthma Diabetes MELY (obstructive sleep apnea) Surgical History H/O hand surgery Social History Alcohol intake: never Patient Tobacco Use Status: Former Tobacco user Smoked in Last 30 Days: No Use of substances other than those prescribed or required for medical reasons: No Advance Directives: No Meds Allergies Allergy/AdvReac Type Severity Reaction Status Date / Time No Known Allergies Allergy Verified 02/08/21 10:38 Active Medications: Current Medications Generic Name Dose Route Start Last Admin Trade Name Freq PRN Reason Stop Dose Admin Pharmacy Consult 1 each 02/09/21 03:00 Consult Rx Vancomycin Dosing MISCELLANE DAILY PRN Consult order Home Medications Medication Instructions Recorded Confirmed Last Taken Type albuterol sulfate 2 puff PO Q4H PRN 02/09/21 02/09/21 02/08/21 History atorvastatin 1 tab PO DAILY 02/09/21 02/09/21 02/08/21 History fluticasone propion-salmeterol 1 puff PO BID 02/09/21 02/09/21 02/08/21 History [Rolly Perea] metformin 1 tab PO BID 02/09/21 02/09/21 02/08/21 History 2 Physical Exam Vital Signs and Narrative: Vital Signs: Last Vital Signs Temp 98.8 F 02/09/21 01:39 Pulse 78 02/09/21 04:00 Resp 20 02/09/21 04:00 BP 152/69 H 02/09/21 04:00 Pulse Ox 95 02/09/21 04:00 Body Mass Index 42.2 Const: Other: obese patient, lying in bed with CPAP machine General: cooperative and no acute distress Orientation/consciousness: patient oriented x3 Eyes: General: appearance normal, both eyes and all related structures Resp: Effort & Inspection: normal respiratory effort and able to speak in complete sentences Cardio: Rate: regular rate Rhythm: regular rhythm GI: Palpation (GI): Soft to palpation Auscultation: normal bowel sounds Skin: Other: has 2 distinct areas of erythema, tenderness, tenderness, and edema in the left lower extremity the 1st area is right below the left knee to the foot, and the 2nd area is around the left groin extending to middle of the thigh Neuro: General: patient oriented x3 Cognition (Neuro): normal cognition Extrem: General: Yes normal to inspection and Yes no pedal edema Results Labs CBC and Chem 7: 02/09/21 00:52 02/09/21 00:52 Labs: Laboratory Results - last 24 hr 02/09/21 02/09/21 02/09/21 00:52 00:52 00:52 MCV 92.1 MCH 30.9 MCHC 33.5 RDW 13.6 Plt Count 158 L MPV 12.1 Immature Gran % (Auto) 1.2 H Neut % (Auto) 93.3 H Lymph % (Auto) 2.3 L [place] % (Auto) 3.1 Eos % (Auto) 0.0 Baso % (Auto) 0.1 Lymph # (Auto) 0.5 L [place] # (Auto) 0.7 Eos # (Auto) 0.0 Baso # (Auto) 0.0 Abs Immat Gran (auto) 0.26 H Absolute Neuts (auto) 20.2 H Absolute Nucleated RBC 0.000 Nucleated RBC % (auto) 0.0 Smear Tech's Comments VERIFIED ESR 23 H Anion Gap 15 Estim Creat Clear Calc 114.2 Estimated GFR > 60 Random Glucose 161 H Lactic Acid Calcium 8.7 Total Bilirubin 0.7 AST 20 ALT 40 Alkaline Phosphatase 62 D Total Creatine Kinase 255 H C-Reactive Protein 17.00 H Total Protein 6.3 L Albumin 3.9 Urine Color Urine Appearance Urine pH Ur Specific [place] Urine Protein Urine Glucose (UA) Urine Ketones Urine Blood Urine Nitrite Ur Leukocyte Esterase Urine RBC Urine WBC Ur Squamous Epith Cells Amorphous Sediment Urine Bacteria Hyaline Casts Urine Mucus COVID-19 (EFREM) COVID-19 Clin Com 02/09/21 02/09/21 02/09/21 01:53 02:58 03:02 MCV MCH MCHC RDW Plt Count MPV Immature Gran % (Auto) Neut % (Auto) Lymph % (Auto) [place] % (Auto) Eos % (Auto) Baso % (Auto) Lymph # (Auto) [place] # (Auto) Eos # (Auto) Baso # (Auto) Abs Immat Gran (auto) Absolute Neuts (auto) Absolute Nucleated RBC Nucleated RBC % (auto) Smear Tech's Comments ESR Anion Gap Estim Creat Clear Calc Estimated GFR Random Glucose Lactic Acid 2.0 Calcium Total Bilirubin AST ALT Alkaline Phosphatase Total Creatine Kinase C-Reactive Protein Total Protein Albumin Urine Color YELLOW Urine Appearance CLEAR Urine pH 6.0 Ur Specific [place] 1.020 Urine Protein 1+ H Urine Glucose (UA) 100 H Urine Ketones 5 Urine Blood NEG Urine Nitrite NEG Ur Leukocyte Esterase NEG Urine RBC 0-2 Urine WBC 1-4 Ur Squamous Epith Cells 1+ Amorphous Sediment TRACE Urine Bacteria NONE Hyaline Casts 0-2 Urine Mucus TRACE COVID-19 (EFREM) Negative COVID-19 Clin Com See Note Imaging Radiologist's Impressions: Impressions Chest X-Ray 02/09/21 01:36 IMPRESSION: Mild bronchial wall thickening as can be seen with a small airways process such as asthma or atypical/viral infection. No focal consolidation. Abdomen/Pelvis CT 02/09/21 01:41 IMPRESSION: 1. Mild left hydronephrosis with multiple probable left mid ureteral calculi. Of note, these calcifications are eccentrically situated at the ureter which is atypical, possibly located within the urothelium. 2. Fat stranding in the left inguinal region anteriorly extending proximally along the left iliac chain. This is of uncertain etiology, potentially due to inflammation more distally within the thigh. Recommend correlation for findings of cellulitis or other infection in the left anterior thigh. 3. Hepatic steatosis. 4. Mild colonic diverticulosis without evidence of acute diverticulitis. 5. Marked degenerative spondylosis in the lumbar spine with high-grade stenoses at L3-L4 and L4-5. Assessment and Plan (1) Cellulitis of left lower extremity: Status: Acute (2) Bacteremia: Status: Acute this is a 55-year-old male with past medical history of diabetes and sleep apnea on CPAP who is called back to the hospital with positive cultures. Patient had presented to the hospital earlier with weakness, fever, dizziness and found to have leukocytosis as well as fever felt to be secondary to heat stroke and was sent home. Patient was cultured at that time, cultures came back positive and therefore he was called back to the hospital. # Bacteremia - sources most likely left extremity cellulitis - patient febrile, has leukocytosis - culture showing Gram-positive cocci in clusters most likely strep - will treat him with ceftriaxone - IV fluids # cellulitis of left extremities - has erythema, tenderness, warmth, and edema of the left lower extremity as well as left groin and thigh area - ceftriaxone - follow final cultures # sleep apnea - continue CPAP # diabetes - hold metformin - start low-dose sliding scale insulin - diabetic diet DVT prophylaxis: heparin subQ Quality Stroke Does the patient have a stroke diagnosis?: No VTE Prior VTE?: No VTE Risk Level:: Medical - moderate - high VTE Device Contraindication: Treatment Not Indicated VTE Drug Contraindication: N/A - Med Ordered
[2021-02-09 07:36] LABS: Glucose, Whole Blood 141 mg/dL (60-115)
[2021-02-09] MEDS: Lactated Ringers 1,000 ML 80 ML IVCONT ×2 (07:39→21:08)
[2021-02-09] MEDS: cefTRIAXone sodium 1 GM in 0.9 % Sodium Chloride 50 ML IV (07:40)
[2021-02-09] MEDS: Heparin Sodium,Porcine 5,000 UNIT/ML VIAL 5000 UNIT SUBCUT ×2 (07:40→21:10)
[2021-02-09 11:32] LABS: Glucose, Whole Blood 169 mg/dL (60-115)
[2021-02-09] MEDS: Insulin Lispro 100 UNIT/ML 3 ML VIAL SUBCUT ×2 (11:43→16:47)
--- NOTE | 2021-02-09 11:54 | PC.NURSE ---
Skin assessment completed today. Patient has redness in bilateral groin. Left groin redness extends in thigh(Cellulitis) and left below knee redness to ankle (Cellulitis). Interdry was placed in bilateral groin area to wick away moisture and improve redness. Dr. Arevalo notified of skin plan.
--- NOTE | 2021-02-09 11:57 | MHC.CLN ---
NUTRITION CONSULT FOR DIABETES PATIENT STATED THAT HAS HAD DIABETES FOR 1-2 YEARS. REPORTED SOME KNOWLEDGE OF DIABETIC DIET INCLUDING REDUCING CONCENTRATED SWEETS, EATING MORE GREENS, AND EATING LOWER FAT MEATS. DIET=DIABETIC [address] RECOMMENDS DIABETIC [address] TO PROVIDE 26.3 KCAL/KG IBW.
--- NOTE | 2021-02-09 14:16 | PM.EVENT ---
Event Note Date of Service: 02/09/21 Event Note: patient seen examined, chart reviewed patient admitted early this morning due to sepsis with positive blood cultures Gram-positive cocci in chains likely due to left thigh/ lower extremity cellulitis on examination patient awake alert and hemodynamically stable sepsis due to Gram-positive bacteremia and left leg cellulitis will continue IV ceftriaxone and add IV vancomycin due to significantly elevated white cell count and extensive cellulitis follow final blood cultures, id consult obtain, DC IV fluid. history of asthma with no acute exacerbation continue home inhalers. diabetes mellitus blood sugars stable
--- NOTE | 2021-02-09 14:24 | MHC.CM.PN ---
nurse health care administrator note RECORD REVIEWED ALONG WITH CASE DISCUSSED WITH STAFF NURSE - MET WITH PATIENT HE REPORTED THAT HE WAS IN THE [employer] ASTHMA AND THEN DISMISSED BUT IS STILL WORKING FOR THE [employer] ,HE DOES NOT USE THE [place] [facility] , PHARMACY,HIS INSURANCE IS BC/BS PPO ID#[id number] PCP DR MESFIN DUNN AT [facility] . HE IS ACTIVE ,INDEPENDENT IN ALL ADLS AND MOBILITY WITH OUT DEVICE , HE HAS CPAP WHICH HE BROUGHT T INTO THE HOSPITAL AND DOES NOT REMBER WHERE HE PURCHASED IT FROM . HE HAS DIABETES BUT DOES NOT CHECK HIS POC , INSTEAD HE HAS HIS HGB-AIC TESTED EVERY 3MONTHS AND IT IS STABILIZED PATIENT WAS ADMITTED FOR CELLULITES HE WAS EVALUATED BY THE WOUND NURSE AND RECOMMENDATIONS WERE MADE FOR WOUND CARE . HE HAS RECEIVED THE MODERNA VACCINATION WITH THE SECOND DOSE GIVEN THE END OF NOVEMBER . HE HAS NO VNA /NO DME SERVICES AND IS NOT ASURE OIF HE WILL NEED THEM DISCHARGE PLAN HOME WITH NO SERVICES VS HOME WITH VNA FOR WOUND ASSESSMENT AND CARE IF NEEDED INIATED REFERRAL TO THE FOLLOWING, [place] , (DECLINED SECONDARY TO LIMITED STAFFING) [facility] [place] NOW OPENDING TRANSPORTATION- FAMILY PCP DR MESFIN DUNN [facility]= PATIENT SHOULD CONFIRMED THAT PATIENT HAS INSURANCE BC/BS WITH THE ABOVE ID NUMBER , THIS WAS CALLED INTO REGISTRATION WITH [employer].
--- NOTE | 2021-02-09 16:13 | W.PM.IDCN ---
History of Present Illness Data of Consult Service Date: 02/09/21 Requesting physician: Evleia Arevalo Primary Care Provider: Unknown Physician HPI Reason for consult: bacteremia,cellulitis He presents to hospital with left leg redness He was seen in ER and had swelling and redness He has Group B strep bacteremia Review of Systems Review of Systems: Yes all other systems are reviewed and are negative PMFSH Past Medical History Medical History Asthma Diabetes MELY (obstructive sleep apnea) Family History Family history: reviewed and not pertinent Surgical History Surgical History H/O hand surgery Social History Social History Household Members: None Housing: House Do you presently have visiting nurse or other home services: No Alcohol intake: never Patient Tobacco Use Status: Former Tobacco user Smoked in Last 30 Days: No Use of substances other than those prescribed or required for medical reasons: No Currently Displaying Signs/Symptoms of Drug Intoxication Withdrawal: No Have you been hit, kicked, punched, or otherwise hurt by someone within the past year? If so, by whom?: No Do you feel safe in your current relationship?: No Current Relationship Is there a partner from a previous relationship who is making you feel unsafe now?: No Are you made to feel afraid or neglected: No Advance Directives: No Do you have thoughts of harming others: None Do you have a plan to hurt others: No Plan Recently lost weight without trying: No Nutrition Risks: No Nutritional Risk Poor oral hygiene: No service: Yes Current occupational status: employed Meds Allergies Allergy/AdvReac Type Severity Reaction Status Date / Time No Known Allergies Allergy Verified 02/08/21 10:38 Active Medications: Current Medications Generic Name Dose Route Start Last Admin Trade Name Freq PRN Reason Stop Dose Admin Acetaminophen 650 mg 02/09/21 07:04 Acetaminophen 325 Mg Tablet PO Q6H PRN Pain, Mild (Pain Scale 1-3) Albuterol Sulfate 2 puff 02/09/21 07:04 Albuterol Sulfate 90 Mcg 8 Gm Inhaler INHALE Q4H PRN Dyspnea Atorvastatin Calcium 20 mg 02/09/21 21:00 Atorvastatin Calcium 20 Mg Tablet PO BEDTIME YSABEL Docusate Sodium 100 mg 02/09/21 07:04 Docusate Sodium 100 Mg Capsule PO DAILY PRN Constipation Fluticasone/Vilanterol 1 puff 02/09/21 09:00 02/09/21 15:45 Fluticasone/Vilanterol 100/25 Blst.W.Dev INHALE Not Given DAILY [facility] Heparin Sodium (Porcine) 5,000 unit 02/09/21 08:00 02/09/21 07:40 Heparin Sodium,Porcine 5,000 Unit/Ml Vial SUBCUT 5,000 unit Q12H [facility] Administration Ceftriaxone Sodium 1 gm/ 50 mls @ 100 mls/hr 02/09/21 08:00 02/09/21 08:20 Sodium Chloride IV Infused Q24H [facility] Infusion Lactated Ringer's 1,000 mls @ 80 mls/hr 02/09/21 07:04 02/09/21 07:39 Lr IVCONT 80 mls/hr .[id number] [facility] Administration Linezolid 600 mg in 300 mls @ 300 mls/hr 02/09/21 16:15 Zyvox/D5w IV Q12H [facility] Insulin Human Lispro 0 unit 02/09/21 07:30 02/09/21 11:43 Insulin Lispro 100 Unit/Ml 3 Ml Vial SUBCUT 2 unit QIDACHS [facility] Administration Protocol Ondansetron HCl 4 mg 02/09/21 07:04 Ondansetron Hcl 4 Mg/2 Ml Vial IVPUSH Q8H PRN Nausea and Vomiting Pharmacy Consult 1 each 02/09/21 03:00 Consult Rx Vancomycin Dosing MISCELLANE DAILY PRN Consult order Sodium Chloride 3 ml 02/09/21 08:00 02/09/21 07:39 0.9 % Sodium Chloride Flush 3 Ml Syringe IVFLUSH Not Given QSHIFT [facility] Home Medications Medication Instructions Recorded Confirmed Last Taken Type albuterol sulfate 2 puff PO Q4H PRN 02/09/21 02/09/21 02/08/21 History atorvastatin 1 tab PO DAILY 02/09/21 02/09/21 02/08/21 History fluticasone propion-salmeterol 1 puff PO BID 02/09/21 02/09/21 02/08/21 History [Rolly Perea] metformin 1 tab PO BID 02/09/21 02/09/2102/08/21 History 2 Physical Exam Vital Signs: Vital Signs: Last Vital Signs Temp 99.7 F 02/09/21 15:18 Pulse 80 02/09/21 15:18 Resp 18 02/09/21 15:18 BP 151/77 H 02/09/21 15:18 Pulse Ox 97 02/09/21 15:18 Body Mass Index 43.3 Const: General: cooperative HENMT: Head: Yes normal to inspection Mouth: Normal oral and palatal mucosa present Resp: Effort & Inspection: normal respiratory effort Cardio: Rate: regular rate Rhythm: regular rhythm GI: Palpation (GI): Soft to palpation and nontender Skin: General skin exam: no rashes or lesions noted Extrem: Other: reddened left leg swelling tinea pedis Results Labs CBC & Chem 7: 02/09/21 00:52 02/09/21 00:52 Labs: Short CBC 02/09/21 Range/Units 00:52 WBC 21.7 H (4.8-10.8) X10*3/uL Hgb 12.9 L (14.0-18.0) g/dl Hct 38.5 L (42-52) % Plt Count 158 L (160-400) X10*3/uL BMP 02/09/21 00:52 Sodium 139 Potassium 4.9 D Chloride 104 Carbon Dioxide 25 BUN 18 H Creatinine 1.07 Calcium 8.7 Cardiac Enzymes 02/09/21 Range/Units 00:52 Total Creatine Kinase 255 H (38-174) U/L Liver Function 02/09/21 Range/Units 00:52 Total Bilirubin 0.7 (0.0-1.0) mg/dL AST 20 (5-37) U/L ALT 40 (0-40) U/L Alkaline Phosphatase 62 D (39-117) U/L Albumin 3.9 (3.5-5.0) g/dL Urine 02/09/21 Range/Units 02:58 Urine Color YELLOW Urine Appearance CLEAR Urine pH 6.0 (5.0-8.0) Ur Specific [place] 1.020 (1.005-1.025) Urine Protein 1+ H (NEG-TRACE) MG/DL Urine Glucose (UA) 100 H (NEG) MG/DL Assessment and Plan (1) Bacteremia: Status: Acute Group B strep Some tinea pedis Can give Linezolid for [place] effect (decrease toxin and bacterial burden) until improving and then Ceftriaxone and po Ceftin to follow ,total 14 days Lotrimin between toes (2) Cellulitis of left lower extremity: Status: Acute
[2021-02-09 16:26] LABS: Glucose, Whole Blood 156 mg/dL (60-115)
[2021-02-09] MEDS: Linezolid/D5W 600 MG/300 ML PIGGYBACK 300 MG IV (18:19)
[2021-02-09 20:33] LABS: Glucose, Whole Blood 139 mg/dL (60-115)
[2021-02-09] MEDS: Atorvastatin Calcium 20 MG TABLET PO (21:10)
[2021-02-09] MEDS: Clotrimazole 1 % Cream 15 GM TUBE 1 APPL TOPICAL (21:10)
[2021-02-10] VITALS (7 sets, daily range): BP systolic 137–153; BP diastolic 73–80; PULSE 65–68; RESP 15–20; TEMP 36.1–37.6; O2SAT 95–99
[2021-02-10] MEDS: Linezolid/D5W 600 MG/300 ML PIGGYBACK 300 MG IV ×2 (06:27→17:23)
[2021-02-10 06:56] LABS: Eosinophils Percent Auto 0.1 % (0-4)
[2021-02-10 06:58] LABS: Basophils Percent Auto 0.2 % (0-2); Hematocrit 35.8 % (42-52); Hemoglobin 12.1 g/dl (14.0-18.0); Imm Gran Abs Auto 0.13 X10*3/uL (0.00-0.03); Imm Gran Pct Auto 0.8 % (0.0-0.4); Lymphocytes Absolute Auto 0.7 X10*3/uL (1.2-4.9); Lymphocytes Percent Auto 4.6 % (20-40); Mean Corpuscular HGB Conc 33.8 g/dl (31.0-36.0); Mean Corpuscular Hemoglobin 30.8 pg (27.0-33.0); Mean Corpuscular Volume 91.1 fL (80-98); Mean Platelet Volume 12.8 fL (9.4-12.4); Monocytes Absolute Auto 0.7 X10*3/uL (0.1-1.2); Monocytes Percent Auto 4.4 % (2-11); Neutrophils Absolute Auto 13.8 X10*3/uL (2.0-8.3); Neutrophils Percent Auto 89.9 % (45-73); Platelet Count 137 X10*3/uL (160-400); Red Blood Count 3.93 X10*6/uL (4.60-5.80); Red Cell Distribution Width 13.7 % (11.0-16.0); White Blood Count 15.3 X10*3/uL (4.8-10.8)
[2021-02-10 07:21] LABS: MANUAL DIFF FLAG NO
[2021-02-10 07:27] LABS: Anion Gap 16 (12-20); Blood Urea Nitrogen 10 mg/dL (9-16); Calcium 8.1 mg/dL (8.4-10.2); Carbon Dioxide 22 mmol/L (22-29); Chloride 103 mmol/L (96-108); Creatinine Clr Calc Pharmacy 165.2; Estimated Glomerular Filt Rate > 60; Glucose Random 125 mg/dL (60-115); Potassium 3.9 mmol/L (3.3-5.1); Sodium 137 mmol/L (135-145)
[2021-02-10 07:41] LABS: Glucose, Whole Blood 149 mg/dL (60-115)
[2021-02-10] MEDS: Heparin Sodium,Porcine 5,000 UNIT/ML VIAL 5000 UNIT SUBCUT ×2 (07:45→20:30)
[2021-02-10] MEDS: Lactated Ringers 1,000 ML 80 ML IVCONT ×2 (07:47→20:32)
[2021-02-10] MEDS: Fluticasone/Vilanterol 100/25 BLST.W.DEV 1 PUFF INHALE (07:52)
[2021-02-10] MEDS: Clotrimazole 1 % Cream 15 GM TUBE 1 APPL TOPICAL ×2 (09:22→20:34)
--- NOTE | 2021-02-10 10:22 | P.PNIM_ITS ---
Subjective Subjective Date of Service: 02/10/21 Interval History: seen in follow-up for sepsis due to cellulitis. There is persistent erythema of the left lower extremity which by the patient's account is better than yesterday. Review of Systems Gen: no fever Resp: no sob, no cough CV: no chest, no LYN, no leg edema GI: No n/v, no abd pain Neuro: No confusion MSK: pain in the left leg Physical Exam Vital Signs: Vital Signs: Last Vital Signs Temp 96.9 F 02/10/21 08:00 Pulse 65 02/10/21 08:00 Resp 18 02/10/21 08:00 BP 146/73 H 02/10/21 08:00 Pulse Ox 98 02/10/21 08:00 Body Mass Index 43.3 Const: Other: General: AO X 3, no acute distress Resp: CTA bilateral CVS: S1,S2,RRR GI: +BS, NT, no distention Skin: noted erythema of leg, up to tight o left side, left leg is notable bigger than right Neuro: motor grossly intact Psych: appropriate affect Objective Data Current Medications Generic Name Dose Route Start Last Admin Trade Name Freq PRN Reason Stop Dose Admin Acetaminophen 650 mg 02/09/21 07:04 Acetaminophen 325 Mg Tablet PO Q6H PRN Pain, Mild (Pain Scale 1-3) Albuterol Sulfate 2 puff 02/09/21 07:04 Albuterol Sulfate 90 Mcg 8 Gm Inhaler INHALE Q4H PRN Dyspnea Atorvastatin Calcium 20 mg 02/09/21 21:00 02/09/21 21:10 Atorvastatin Calcium 20 Mg Tablet PO 20 mg BEDTIME YSABEL Administration Clotrimazole 1 appl 02/09/21 21:00 02/10/21 09:22 Clotrimazole 1 % Cream 15 Gm Tube TOPICAL 1 appl BID YSABEL Administration Protocol Docusate Sodium 100 mg 02/09/21 07:04 Docusate Sodium 100 Mg Capsule PO DAILY PRN Constipation Fluticasone/Vilanterol 1 puff 02/09/21 09:00 02/10/21 07:52 Fluticasone/Vilanterol 100/25 Blst.W.Dev INHALE 1 puff DAILY YSABEL Administration Heparin Sodium (Porcine) 5,000 unit 02/09/21 08:00 02/10/21 07:45 Heparin Sodium,Porcine 5,000 Unit/Ml Vial SUBCUT 5,000 unit Q12H YSABEL Administration Lactated Ringer's 1,000 mls @ 80 mls/hr 02/09/21 07:04 02/10/21 07:47 Lr IVCONT 80 mls/hr .[id number] YSABEL Administration Linezolid 600 mg in 300 mls @ 300 mls/hr 02/09/21 18:00 02/10/21 07:50 Zyvox/D5w IV Infused Q12H [facility] Infusion Insulin Human Lispro 0 unit 02/09/21 07:30 02/10/21 07:40 Insulin Lispro 100 Unit/Ml 3 Ml Vial SUBCUT Not Given QIDACHS [facility] Protocol Ondansetron HCl 4 mg 02/09/21 07:04 Ondansetron Hcl 4 Mg/2 Ml Vial IVPUSH Q8H PRN Nausea and Vomiting Pharmacy Consult 1 each 02/09/21 03:00 Consult Rx Vancomycin Dosing MISCELLANE DAILY PRN Consult order Sodium Chloride 3 ml 02/09/21 08:00 02/10/21 07:40 0.9 % Sodium Chloride Flush 3 Ml Syringe IVFLUSH Not Given QSHIFT [facility] Labs CBC & Chem 7: 02/10/21 06:01 02/10/21 06:01 Labs: Laboratory Results - last 24 hr 02/09/21 02/09/21 02/09/21 11:25 16:20 20:29 WBC RBC Hgb Hct MCV MCH MCHC RDW Plt Count MPV Immature Gran % (Auto) Neut % (Auto) Lymph % (Auto) [place] % (Auto) Eos % (Auto) Baso % (Auto) Lymph # (Auto) [place] # (Auto) Eos # (Auto) Baso # (Auto) Abs Immat Gran (auto) Absolute Neuts (auto) Absolute Nucleated RBC Nucleated RBC % (auto) Sodium Potassium Chloride Carbon Dioxide Anion Gap BUN Creatinine Estim Creat Clear Calc Estimated GFR POC Glucose 169 H 156 H 139 H Random Glucose Calcium 02/10/21 02/10/21 02/10/21 06:01 06:01 07:37 WBC 15.3 H RBC 3.93 L Hgb 12.1 L Hct 35.8 L MCV 91.1 MCH 30.8 MCHC 33.8 RDW 13.7 Plt Count 137 L MPV 12.8 H Immature Gran % (Auto) 0.8 H Neut % (Auto) 89.9 H Lymph % (Auto) 4.6 L [place] % (Auto) 4.4 Eos % (Auto) 0.1 Baso % (Auto) 0.2 Lymph # (Auto) 0.7 L [place] # (Auto) 0.7 Eos # (Auto) 0.0 Baso # (Auto) 0.0 Abs Immat Gran (auto) 0.13 H Absolute Neuts (auto) 13.8 H Absolute Nucleated RBC 0.000 Nucleated RBC % (auto) 0.0 Sodium 137 Potassium 3.9 D Chloride 103 Carbon Dioxide 22 Anion Gap 16 BUN 10 Creatinine 0.75 Estim Creat Clear Calc 165.2 Estimated GFR > 60 POC Glucose 149 H Random Glucose 125 H Calcium 8.1 L D Quality Stroke Does the patient have a stroke diagnosis?: No VTE Prior VTE?: No VTE Risk Level:: Medical - moderate - high VTE Device Contraindication: Treatment Not Indicated VTE Drug Contraindication: N/A - Med Ordered Assessment and Plan (1) Cellulitis of left lower extremity: Status: Acute (2) Bacteremia: Status: Acute Assessment and Plan: 55-year-old male with past medical history of diabetes and sleep apnea on CPAP who is called back to the hospital with positive cultures. Patient had presented to the hospital earlier with weakness, fever, dizziness and found to have leukocytosis as well as fever felt to be secondary to heat stroke and was sent home. Patient was cultured at that time, cultures came back positive and therefore he was called back to the hospital. #Sepsis d/t Cellulitis #Group B strep bacteremia #Left leg Cellulitis that is extensive, although better -Continue IV Zyvox for [place] effect to decrease bacterial burden, change to Ceftriaxone later today or tomorrow and at discharege PO Ceftin--This is ID recommendation from 02/09 -Left LE doppler to r/u DVT # Obstructive sleep apnea (MELY) - continue CPAP # diabetes--Restart Metformin, Contin SSI DVT prophylaxis: heparin subQ
[2021-02-10 11:19] LABS: Glucose, Whole Blood 105 mg/dL (60-115)
--- NOTE | 2021-02-10 14:19 | P.PNID_ITS ---
Subjective Subjective Date of Service: 02/10/21 Critical Care Time (minutes): 15 Comment: He has left leg red,says better than yesterday Objective Data Labs CBC & Chem 7: 02/10/21 06:01 02/10/21 06:01 Labs: Laboratory Results - last 24 hr 02/09/21 02/09/21 02/10/21 16:20 20:29 06:01 WBC 15.3 H RBC 3.93 L Hgb 12.1 L Hct 35.8 L MCV 91.1 MCH 30.8 MCHC 33.8 RDW 13.7 Plt Count 137 L MPV 12.8 H Immature Gran % (Auto) 0.8 H Neut % (Auto) 89.9 H Lymph % (Auto) 4.6 L [place]hing % (Auto) 4.4 Eos % (Auto) 0.1 Baso % (Auto) 0.2 Lymph # (Auto) 0.7 L [place] # (Auto) 0.7 Eos # (Auto) 0.0 Baso # (Auto) 0.0 Abs Immat Gran (auto) 0.13 H Absolute Neuts (auto) 13.8 H Absolute Nucleated RBC 0.000 Nucleated RBC % (auto) 0.0 Sodium Potassium Chloride Carbon Dioxide Anion Gap BUN Creatinine Estim Creat Clear Calc Estimated GFR POC Glucose 156 H 139 H Random Glucose Calcium 02/10/21 02/10/21 02/10/21 06:01 07:37 11:12 WBC RBC Hgb Hct MCV MCH MCHC RDW Plt Count MPV Immature Gran % (Auto) Neut % (Auto) Lymph % (Auto) [place] % (Auto) Eos % (Auto) Baso % (Auto) Lymph # (Auto) [place] # (Auto) Eos # (Auto) Baso # (Auto) Abs Immat Gran (auto) Absolute Neuts (auto) Absolute Nucleated RBC Nucleated RBC % (auto) Sodium 137 Potassium 3.9 D Chloride 103 Carbon Dioxide 22 Anion Gap 16 BUN 10 Creatinine 0.75 Estim Creat Clear Calc 165.2 Estimated GFR > 60 POC Glucose 149 H 105 Random Glucose 125 H Calcium 8.1 L D Physical Exam Vital Signs: Vital Signs: Last Vital Signs Temp 96.9 F 02/10/21 08:00 Pulse 65 02/10/21 08:00 Resp 18 02/10/21 08:00 BP 146/73 H 02/10/21 08:00 Pulse Ox 98 02/10/21 08:00 Body Mass Index 43.3 Const: General: cooperative Resp: Effort & Inspection: normal respiratory effort Cardio: Rate: regular rate Rhythm: regular rhythm GI: Palpation (GI): nontender Extrem: Other: LLE erythema to groin Assessment and Plan Assessment and plan (1) Bacteremia: Problem details: Still LLE erythema Group B strep Patient says better Status: Acute Assessment and Plan: Would continue Linezolid If not improved CT scan day or two (2) Cellulitis of left lower extremity: Status: Acute Time Spent With Patient Time: Total time spent is greater than 50% in coordination of care (as documented) at patient's floor/unit and/or counseling patient: Time with patient: 15 - 24 minutes
[2021-02-10 16:14] LABS: Glucose, Whole Blood 160 mg/dL (60-115)
[2021-02-10] MEDS: Insulin Lispro 100 UNIT/ML 3 ML VIAL SUBCUT (16:58)
[2021-02-10] MEDS: Atorvastatin Calcium 20 MG TABLET PO (20:30)
[2021-02-10 20:39] LABS: Glucose, Whole Blood 130 mg/dL (60-115)
[2021-02-11] VITALS (7 sets, daily range): BP systolic 113–151; BP diastolic 65–88; PULSE 60–106; RESP 15–28; TEMP 36–37.4; O2SAT 92–98
[2021-02-11] MEDS: Linezolid/D5W 600 MG/300 ML PIGGYBACK 300 MG IV ×2 (06:27→17:24)
[2021-02-11 07:48] LABS: Glucose, Whole Blood 128 mg/dL (60-115)
[2021-02-11] MEDS: Heparin Sodium,Porcine 5,000 UNIT/ML VIAL 5000 UNIT SUBCUT ×2 (07:55→20:33)
[2021-02-11] MEDS: Fluticasone/Vilanterol 100/25 BLST.W.DEV 1 PUFF INHALE (07:56)
[2021-02-11] MEDS: Clotrimazole 1 % Cream 15 GM TUBE 1 APPL TOPICAL ×2 (07:56→20:33)
--- NOTE | 2021-02-11 09:22 | P.PNIM_ITS ---
Subjective Subjective Date of Service: 02/11/21 Interval History: seen in follow-up for sepsis due to cellulitis. There is persistent erythema of the left lower extremity which by the patient's account is a little better, US no DVT Review of Systems Gen: no fever Resp: no sob, no cough CV: no chest, no LYN, no leg edema GI: No n/v, no abd pain Neuro: No confusion MSK: pain in the left leg Physical Exam Vital Signs: Vital Signs: Last Vital Signs Temp 96.8 F 02/11/21 07:36 Pulse 68 02/11/21 07:56 Resp 18 02/11/21 07:36 BP 127/87 02/11/21 07:36 Pulse Ox 92 02/11/21 07:36 Body Mass Index 43.3 Const: Other: General: AO X 3, no acute distress Resp: CTA bilateral CVS: S1,S2,RRR GI: +BS, NT, no distention Skin: noted erythema of leg, I think better than yesterday Neuro: motor grossly intact Psych: appropriate affect Objective Data Current Medications Generic Name Dose Route Start Last Admin Trade Name Freq PRN Reason Stop Dose Admin Acetaminophen 650 mg 02/09/21 07:04 Acetaminophen 325 Mg Tablet PO Q6H PRN Pain, Mild (Pain Scale 1-3) Albuterol Sulfate 2 puff 02/09/21 07:04 Albuterol Sulfate 90 Mcg 8 Gm Inhaler INHALE Q4H PRN Dyspnea Atorvastatin Calcium 20 mg 02/09/21 21:00 02/10/21 20:30 Atorvastatin Calcium 20 Mg Tablet PO 20 mg BEDTIME YSABEL Administration Clotrimazole 1 appl 02/09/21 21:00 02/11/21 07:56 Clotrimazole 1 % Cream 15 Gm Tube TOPICAL 1 appl BID YSABEL Administration Protocol Docusate Sodium 100 mg 02/09/21 07:04 Docusate Sodium 100 Mg Capsule PO DAILY PRN Constipation Fluticasone/Vilanterol 1 puff 02/09/21 09:00 02/11/21 07:56 Fluticasone/Vilanterol 100/25 Blst.W.Dev INHALE 1 puff DAILY YSABEL Administration Heparin Sodium (Porcine) 5,000 unit 02/09/21 08:00 02/11/21 07:55 Heparin Sodium,Porcine 5,000 Unit/Ml Vial SUBCUT 5,000 unit Q12H [facility] Administration Lactated Ringer's 1,000 mls @ 80 mls/hr 02/09/21 07:04 02/11/21 08:36 Lr IVCONT Not Given .[id number] [facility] Linezolid 600 mg in 300 mls @ 300 mls/hr 02/09/21 18:00 02/11/21 08:35 Zyvox/D5w IV Infused Q12H [facility] Infusion Insulin Human Lispro 0 unit 02/09/21 07:30 02/11/21 07:51 Insulin Lispro 100 Unit/Ml 3 Ml Vial SUBCUT Not Given QIDACHS [facility] Protocol Ondansetron HCl 4 mg 02/09/21 07:04 Ondansetron Hcl 4 Mg/2 Ml Vial IVPUSH Q8H PRN Nausea and Vomiting Pharmacy Consult 1 each 02/09/21 03:00 Consult Rx Vancomycin Dosing MISCELLANE DAILY PRN Consult order Sodium Chloride 3 ml 02/09/21 08:00 02/11/21 07:56 0.9 % Sodium Chloride Flush 3 Ml Syringe IVFLUSH Not Given QSHIFT [facility] Labs CBC & Chem 7: 02/10/21 06:01 02/10/21 06:01 Labs: Laboratory Results - last 24 hr 02/10/21 02/10/21 02/10/21 11:12 16:05 20:33 POC Glucose 105 160 H 130 H 02/11/21 07:35 POC Glucose 128 H Quality Stroke Does the patient have a stroke diagnosis?: No VTE Prior VTE?: No VTE Risk Level:: Medical - moderate - high VTE Device Contraindication: Treatment Not Indicated VTE Drug Contraindication: N/A - Med Ordered Assessment and Plan (1) Cellulitis of left lower extremity: Status: Acute (2) Bacteremia: Status: Acute Assessment and Plan: 55-year-old male with past medical history of diabetes and sleep apnea on CPAP who is called back to the hospital with positive cultures. Patient had presented to the hospital earlier with weakness, fever, dizziness and found to have leukocytosis as well as fever felt to be secondary to heat stroke and was sent home. Patient was cultured at that time, cultures came back positive and therefore he was called back to the hospital. #Sepsis d/t Cellulitis #Group B strep bacteremia #Left leg Cellulitis that is extensive, although better -Continue IV Zyvox for [place] effect to decrease bacterial burden, continue Zyvox and if not better in 1 or 2 days, then CT -- ID recommendation 02/10 -Left LE doppler on 02/10 negative for DVT # Obstructive sleep apnea (MELY) - continue CPAP # Diabetes--Restart Metformin, Contin SSI DVT prophylaxis: heparin subQ
--- NOTE | 2021-02-11 09:27 | P.PNIM_ITS ---
Subjective Subjective Date of Service: 02/12/21 Interval History: seen in follow-up for sepsis due to cellulitis. There is persistent erythema of the left lower extremity is still swollen with some residual redness but is overall better Review of Systems Gen: no fever Resp: no sob, no cough CV: no chest, no LYN, no leg edema GI: No n/v, no abd pain Neuro: No confusion MSK: pain in the left leg Physical Exam Vital Signs: Vital Signs: Last Vital Signs Temp 96.8 F 02/11/21 07:36 Pulse 68 02/11/21 07:56 Resp 18 02/11/21 07:36 BP 127/87 02/11/21 07:36 Pulse Ox 92 02/11/21 07:36 Body Mass Index 43.3 Const: Other: General: AO X 3, no acute distress Resp: CTA bilateral CVS: S1,S2,RRR GI: +BS, NT, no distention Skin: noted erythema of leg, I think better than yesterday Neuro: motor grossly intact Psych: appropriate affect Objective Data Current Medications Generic Name Dose Route Start Last Admin Trade Name Freq PRN Reason Stop Dose Admin Acetaminophen 650 mg 02/09/21 07:04 Acetaminophen 325 Mg Tablet PO Q6H PRN Pain, Mild (Pain Scale 1-3) Albuterol Sulfate 2 puff 02/09/21 07:04 Albuterol Sulfate 90 Mcg 8 Gm Inhaler INHALE Q4H PRN Dyspnea Atorvastatin Calcium 20 mg 02/09/21 21:00 02/10/21 20:30 Atorvastatin Calcium 20 Mg Tablet PO 20 mg BEDTIME YSABEL Administration Clotrimazole 1 appl 02/09/21 21:00 02/11/21 07:56 Clotrimazole 1 % Cream 15 Gm Tube TOPICAL 1 appl BID YSABEL Administration Protocol Docusate Sodium 100 mg 02/09/21 07:04 Docusate Sodium 100 Mg Capsule PO DAILY PRN Constipation Fluticasone/Vilanterol 1 puff 02/09/21 09:00 02/11/21 07:56 Fluticasone/Vilanterol 100/25 Blst.W.Dev INHALE 1 puff DAILY YSABEL Administration Heparin Sodium (Porcine) 5,000 unit 02/09/21 08:00 02/11/21 07:55 Heparin Sodium,Porcine 5,000 Unit/Ml Vial SUBCUT 5,000 unit Q12H YSABEL Administration Lactated Ringer's 1,000 mls @ 80 mls/hr 02/09/21 07:04 02/11/21 08:36 Lr IVCONT Not Given .[id number] [facility] Linezolid 600 mg in 300 mls @ 300 mls/hr 02/09/21 18:00 02/11/21 08:35 Zyvox/D5w IV Infused Q12H [facility] Infusion Insulin Human Lispro 0 unit 02/09/21 07:30 02/11/21 07:51 Insulin Lispro 100 Unit/Ml 3 Ml Vial SUBCUT Not Given QIDACHS [facility] Protocol Ondansetron HCl 4 mg 02/09/21 07:04 Ondansetron Hcl 4 Mg/2 Ml Vial IVPUSH Q8H PRN Nausea and Vomiting Pharmacy Consult 1 each 02/09/21 03:00 Consult Rx Vancomycin Dosing MISCELLANE DAILY PRN Consult order Sodium Chloride 3 ml 02/09/21 08:00 02/11/21 07:56 0.9 % Sodium Chloride Flush 3 Ml Syringe IVFLUSH Not Given QSHIFT [facility] Labs CBC & Chem 7: 02/12/21 06:15 02/12/21 06:15 Labs: Laboratory Results - last 24 hr 02/10/21 02/10/21 02/10/21 11:12 16:05 20:33 POC Glucose 105 160 H 130 H 02/11/21 07:35 POC Glucose 128 H Quality Stroke Does the patient have a stroke diagnosis?: No VTE Prior VTE?: No VTE Risk Level:: Medical - moderate - high VTE Device Contraindication: Treatment Not Indicated VTE Drug Contraindication: N/A - Med Ordered Assessment and Plan (1) Cellulitis of left lower extremity: Status: Acute (2) Bacteremia: Status: Acute Assessment and Plan: 55-year-old male with past medical history of diabetes and sleep apnea on CPAP who is called back to the hospital with positive cultures. Patient had presented to the hospital earlier with weakness, fever, dizziness and found to have leukocytosis as well as fever felt to be secondary to heat stroke and was sent home. Patient was cultured at that time, cultures came back positive and therefore he was called back to the hospital. #Sepsis d/t Cellulitis #Group B strep bacteremia #Left leg Cellulitis that was extensive and is getting better -Continue IV Zyvox for [place] effect to decrease bacterial burden, continue Zyvox and if not better in 1 or 2 days, then CT -- ID recommendation 02/10 -Left LE doppler on 02/10 negative for DVT -I will check with ID to see if we can transition to PO today and discharge # Obstructive sleep apnea (MELY) - continue CPAP # Diabetes--Restart Metformin, Contin SSI DVT prophylaxis: heparin subQ Possibly home later today
[2021-02-11] MEDS: metFORMIN HCl 500 MG TABLET PO ×2 (09:46→16:28)
[2021-02-11] MEDS: Lactated Ringers 1,000 ML 80 ML IVCONT ×2 (10:22→22:59)
[2021-02-11 11:58] LABS: Glucose, Whole Blood 116 mg/dL (60-115)
--- NOTE | 2021-02-11 14:08 | MHC.CM.PN ---
[facility]. CM CONTINUING TO FOLLOW FOR DISCHARGE TO HOME.
[2021-02-11 15:54] LABS: Glucose, Whole Blood 107 mg/dL (60-115)
[2021-02-11 20:18] LABS: Glucose, Whole Blood 125 mg/dL (60-115)
[2021-02-11] MEDS: Atorvastatin Calcium 20 MG TABLET PO (20:33)
[2021-02-12] VITALS (7 sets, daily range): BP systolic 134–162; BP diastolic 70–88; PULSE 57–106; RESP 16–20; TEMP 35.9–36.9; O2SAT 93–96
[2021-02-12] MEDS: Linezolid/D5W 600 MG/300 ML PIGGYBACK 300 MG IV ×2 (05:52→17:20)
[2021-02-12 06:47] LABS: Hematocrit 35.5 % (42-52); Hemoglobin 11.7 g/dl (14.0-18.0); Mean Corpuscular Hemoglobin 29.9 pg (27.0-33.0); Mean Corpuscular Volume 90.8 fL (80-98); Mean Platelet Volume 12.5 fL (9.4-12.4); Platelet Count 173 X10*3/uL (160-400); Red Blood Count 3.91 X10*6/uL (4.60-5.80); Red Cell Distribution Width 13.2 % (11.0-16.0); White Blood Count 7.3 X10*3/uL (4.8-10.8)
[2021-02-12 07:15] LABS: Anion Gap 12 (12-20); Blood Urea Nitrogen 9 mg/dL (9-16); Calcium 8.3 mg/dL (8.4-10.2); Carbon Dioxide 27 mmol/L (22-29); Chloride 104 mmol/L (96-108); Creatinine Clr Calc Pharmacy 151.1; Estimated Glomerular Filt Rate > 60; Glucose Random 116 mg/dL (60-115); Sodium 139 mmol/L (135-145)
[2021-02-12 07:36] LABS: Glucose, Whole Blood 115 mg/dL (60-115)
[2021-02-12] MEDS: Fluticasone/Vilanterol 100/25 BLST.W.DEV 1 PUFF INHALE (07:39)
[2021-02-12] MEDS: metFORMIN HCl 500 MG TABLET PO ×2 (08:00→16:36)
[2021-02-12] MEDS: Clotrimazole 1 % Cream 15 GM TUBE 1 APPL TOPICAL ×2 (08:00→20:39)
[2021-02-12] MEDS: Heparin Sodium,Porcine 5,000 UNIT/ML VIAL 5000 UNIT SUBCUT ×2 (08:00→20:38)
[2021-02-12 11:53] LABS: Glucose, Whole Blood 79 mg/dL (60-115)
[2021-02-12] MEDS: 0.9 % Sodium Chloride Flush 3 ML SYRINGE IVFLUSH (15:58)
[2021-02-12 16:21] LABS: Glucose, Whole Blood 121 mg/dL (60-115)
[2021-02-12] MEDS: cefTRIAXone sodium 1 GM in 0.9 % Sodium Chloride 50 ML IV (16:35)
[2021-02-12 20:17] LABS: Glucose, Whole Blood 132 mg/dL (60-115)
[2021-02-12] MEDS: Atorvastatin Calcium 20 MG TABLET PO (20:39)
[2021-02-13] MEDS: 0.9 % Sodium Chloride Flush 3 ML SYRINGE IVFLUSH ×2 (00:23→07:51)
[2021-02-13 04:00] VITALS: BP 157/87; PULSE 56; RESP 18; TEMP 36; O2SAT 94
[2021-02-13] MEDS: Linezolid/D5W 600 MG/300 ML PIGGYBACK 300 MG IV (05:38)
[2021-02-13] MEDS: Fluticasone/Vilanterol 100/25 BLST.W.DEV 1 PUFF INHALE (07:19)
[2021-02-13 07:37] LABS: Glucose, Whole Blood 156 mg/dL (60-115)
[2021-02-13] MEDS: Heparin Sodium,Porcine 5,000 UNIT/ML VIAL 5000 UNIT SUBCUT (07:51)
[2021-02-13] MEDS: metFORMIN HCl 500 MG TABLET PO (07:51)
[2021-02-13] MEDS: Insulin Lispro 100 UNIT/ML 3 ML VIAL SUBCUT (07:51)
[2021-02-13 08:00] VITALS: BP 157/90; PULSE 109; RESP 18; TEMP 36; O2SAT 94
[2021-02-13] MEDS: Clotrimazole 1 % Cream 15 GM TUBE 1 APPL TOPICAL (09:52)
[2021-02-13 11:12] VITALS: BP 139/84; PULSE 110; RESP 18; TEMP 36.4; O2SAT 95
[2021-02-13 11:28] LABS: Glucose, Whole Blood 97 mg/dL (60-115)
--- NOTE | 2021-02-13 13:00 | PM.IDPN ---
Subjective Subjective Date of Service: 02/13/21 Critical Care Time (minutes): 15 Comment: he feels much better no pain moving around Objective Data Labs CBC & Chem 7: 02/12/21 06:15 02/12/21 06:15 Labs: Laboratory Results - last 24 hr 02/12/21 02/12/21 02/13/21 16:16 20:13 07:27 POC Glucose 121 H 132 H 156 H 02/13/21 11:12 POC Glucose 97 Microbiology Microbiology Results: Microbiology 02/10/21 07:51 Blood - Venous Blood Culture - Preliminary No growth after 48 hours. 02/10/21 07:44 Blood - Venous Blood Culture - Preliminary No growth after 48 hours. Physical Exam Vital Signs: Vital Signs: Last Vital Signs Temp 97.6 F 02/13/21 11:12 Pulse 110 H 02/13/21 11:12 Resp 18 02/13/21 11:12 BP 139/84 02/13/21 11:12 Pulse Ox 95 02/13/21 11:12 Body Mass Index 43.3 Const: General: cooperative HENMT: Head: Yes normal to inspection Mouth: oropharynx normal Resp: Effort & Inspection: normal respiratory effort Cardio: Rate: regular rate Rhythm: regular rhythm GI: Palpation (GI): Soft to palpation and nontender Skin: General skin exam: no rashes or lesions noted Extrem: Other: improved erythema Assessment and Plan Assessment and plan (1) Bacteremia: Problem details: Still LLE erythema Group B strep Patient says better yet today Status: Acute Assessment and Plan: Would send on po linezolid for additional 5-7 days and Lotrimin OTC groin area and Cortaid OTC reddened patch on leg Time Spent With Patient Time: Total time spent is greater than 50% in coordination of care (as documented) at patient's floor/unit and/or counseling patient: Time with patient: 15 - 24 minutes
--- NOTE | 2021-02-13 13:16 | PM.DS ---
DS: Providers Provider Date of Service: 02/13/21 Date of admission: 02/09/21 05:17 Primary care physician: Unknown Physician Consults: 02/09/21 07:42 Consult to Infectious Diseases Routine Consulting Provider: Dione Kelsey Reason for consultation: bacteremia Has provider been notified: No DS: Diagnosis Discharge Diagnosis (1) Bacteremia: Status: Acute DS: Medications Discharge Medications Home Medications: Home Medications Medication Instructions Recorded Confirmed albuterol sulfate 2 puff PO Q4H PRN 02/09/21 02/09/21 atorvastatin 1 tab PO DAILY 02/09/21 02/09/21 fluticasone propion-salmeterol 1 puff PO BID 02/09/21 02/09/21 [Rolly Perea] metformin 1 tab PO BID 02/09/21 02/09/21 DS: Summary Hospital Course Hospital Course: Date of Service: 02/09/21 Chief Complaint: Positive cultures this is a 55-year-old male with past medical history of diabetes, MELY and asthma who presents to the hospital after being called back to the ED for positive cultures. Patient had been seen earlier in the ED for complaints of lightheadedness, dizziness, vomiting, diarrhea and weakness and found to have temperature of 103? at that time patient was diagnosed with heat stroke treated with IV fluids, patient's vitals at that time were stable except for temperature of 103?, he was also found [place] an [place] [address] with a left shift, as well as lactic acid of 2.3. Patient received IV fluids in the ED and with improvement in his symptoms as well as his fever and lactic acid and was sent home. He has cultures drawn at the time and they returned 2/2 bottles positive with Gram- positive cocci in in chains. He returns now noted to have left lower extremity swelling redness but reports says he has had that for a while. He also has left groin area redness when asked about that he also says that he thought he was a yeast infection and has been placing nystatin on it with no resolution. He denies any fever or chills, no abdominal pain nausea vomiting, no diarrhea, no chest pain. patient has no shortness of breath. Denies any urinary symptoms. On this presentation vitals were significant for temp of a 100.4?, respiratory rate of 22, blood pressure of 144/65, heart rate of 76, satting 95% on room air labs are not significant for WBC count of 21.7 from 15 earlier in the day, BUN of 18, creatinine of 1.07 that increased from 0.96, lactic acid of 2.0, UA negative, COVID negative culture showing Gram-positive cocci in chains. Hospital course: patient presented with extensive right leg cellulitis with associated sepsis and had group b strep bacteremia as a cause. He was initially treated with Zosyn, Ceftriaxone and later Vancomycin. Blood later showed group B streptococcus and so he wsa given IV Zyvox per ID recommendation. He had ultrasound of leg which showed no DVT or fluid collection. Over the course of hospitalization swelling has significantly improved and there is still some residual redness but is expected to fully recovered. Repeat blood cultures have been negatove over 48 hours. He will be discharge with Zyvox for another 10 days Fungal rash in groin--Nystatin powder Final Diagnosis: Sepsis Bacteremia Cellulitis of the right Fungal rash Time Spent with Patient Time attestation: Total time spent providing and/or coordinating discharge services: Discharge coordination time: Greater than 30 minutes Quality: Stroke Does the patient have a stroke diagnosis?: No Physical Exam Vital Signs: Vital Signs: Last Vital Signs Temp 97.6 F 02/13/21 11:12 Pulse 110 H 02/13/21 11:12 Resp 18 02/13/21 11:12 BP 139/84 02/13/21 11:12 Pulse Ox 95 02/13/21 11:12 Body Mass Index 43.3 DS: Data Data Completed and Pending Labs on day of discharge: Laboratory Results - last 24 hr 02/12/21 02/12/21 02/13/21 16:16 20:13 07:27 POC Glucose 121 H 132 H 156 H 02/13/21 11:12 POC Glucose 97 Preliminary micro results at discharge 02/10/21 07:51 Blood Culture - Preliminary Blood - Venous No growth after 48 hours. 02/10/21 07:44 Blood Culture - Preliminary Blood - Venous No growth after 48 hours. Discharge Plan Discharge Anticipated Discharge Date/Time: 02/13/21 13:07 Patient Disposition: Home Health Service Discharge Diagnosis: Strep bacteremia and Cellulitis Referrals: [facility] [Outside] - 1 Week Physician,Unknown [Primary Care Provider] - 1 Week Discharge Medications: New nystatin 100,000 unit/gram Powder 1 appl topical BID Qty: 30 RF: 0 cephalexin 500 mg capsule 500 mg PO Q6H 7 Days Qty: 28 RF: 0 Continued metformin 500 mg tablet 1 tab PO BID RF: 0 fluticasone propion-salmeterol [Wixela Inhub] 250-50 mcg/dose blister with device 1 puff PO BID RF: 0 atorvastatin 20 mg tablet 1 tab PO DAILY RF: 0 albuterol sulfate 90 mcg/actuation HFA aerosol inhaler 2 puff PO Q4H PRN (Reason: Dyspnea) RF: 0 Discharge Orders: Discharge Order (Routine); Ordered 02/13/21 Ordered By: Brian Bolanos Diet: advance to usual diet Activity on Discharge: As tolerated Stand Alone Forms: Patient Portal Discharge page Care Plan Goals: Full recovery from sepsis Health Concerns: sepsis, bacteremia and cellulitis fo the leg Plan of Treatment: Take Zyvox as recommended and follow up with your Doctor in a week Assessment: Same as above
--- NOTE | 2021-02-13 13:40 | PM.EVENT ---
Event Note Date of Service: 02/13/21 Event Note: apparently patients insurance doesnt cover Linezolid, would send on po Keflex 500 mg qid for 5-7 days
--- NOTE | 2021-02-13 15:07 | MHC.CM.PN ---
PATIENT IS RETURNING HOME WITH [facility] PATIENT AND RN AWARE OF PLAN.
--- NOTE | 2021-02-13 15:28 | P.F2F_ITS ---
Service Date Service Date: 02/13/21 Reasons for Services Reason for retirement: medication management and medication treatment Homebound: Leaving the home is medically contraindicated at this time without the asist of a device and/or another person due th the listed conditions above and below. Reason homebound: other Homebound supporting statement: Homeboud due to severe cellulitis with marked swelling and cause difficultuy ambulating and therefore needs the assistance of another person Certification: Based on the above findings, I certify that this patient is confined to the home and needs intermittent retirement care, physical therapy and/or speech therapy, or continues to need occupational therapy. The patient is under my care, and I have initiated the establishment of the plan of care. The patient will be followed by a physician who will periodically review the plan of care.
[2021-02-13] MEDS: Nystatin Powder 15 GM BOTTLE 1 APPL TOPICAL (16:22)
== END 2021-02-13 16:23 | disposition home health service (06) | DRG 720 ==
LOC: HO.ED 02-09 03:26 → HO.S3 02-09 05:36
PROVIDERS: Hospitalist; Admitting Provider Internal Medicine; Emergency Provider Student in an Organized Health Care Education/Training Program; PCP Family Medicine; Visit Provider Internal Medicine
DX: A40.1 Sepsis due to streptococcus, group B (principal); L03.116 Cellulitis of left lower limb; B35.6 Tinea cruris; G47.33 Obstructive sleep apnea (adult) (pediatric); E11.9 Type 2 diabetes mellitus without complications; Z87.891 Personal history of nicotine dependence; Z20.822 Contact with and (suspected) exposure to COVID-19; Z79.51 Long term (current) use of inhaled steroids; Z79.84 Long term (current) use of oral hypoglycemic drugs; Z79.899 Other long term (current) drug therapy
CPT/HCPCS: 36415; 71046; 74177; 80048; 80053; 81001; 82550; 82947; 83605; 85025; 85027; 85652; 86140; 87040; 87635; 93971; 94640; 99285; J0696; J2020; J2543; J3370; Q9967